=== PATIENT | male | born 1980 | race Caucasian/White ===

== ENCOUNTER → 2016-11-22 | Outpatient (CLI) | payer OTHER ==
[~2016-11-22] MED LIST: ACET-1256 PO; GADAVIST IV PRN
--- NOTE | 2016-11-22 10:05 | DIAGNOSTIC IMAGING REPORT ---
ORBITS FOR MRI CLINICAL HISTORY: 36 years-old Male presenting with R/O FOREIGN BODY PRIOR TO MRI, orbit screening prior to MRI. TECHNIQUE: Frontal and lateral radiographs of the orbits were obtained. COMPARISON: Head CT from 2012. FINDINGS: No radiodensity suggestive of retained metallic foreign body. Paranasal sinuses grossly clear. Calvarium intact. IMPRESSION: 1. No intraorbital metallic foreign body to preclude MRI. Electronically signed by: Fred Ray M.D. 11/22/2016 10:03 AM Dictated Date/Time: 11/22/2016 10:02 AM
--- NOTE | 2016-11-22 11:04 | DIAGNOSTIC IMAGING REPORT ---
BRAIN COMBO CLINICAL HISTORY: 36 years-old Male presenting with ataxia, expressive language disorder, memory loss and speech impairment since March 26, 2016. TECHNIQUE: Multisequence, multiplanar MR imaging of the brain was performed before and after the administration of intravenous contrast. IV contrast: 7 mL of Gadavist. COMPARISON: Correlation made with CT of the head from April 25, 2013. FINDINGS: Mild upward convexity of the pituitary gland. Otherwise normal midline sagittal structures. No restricted diffusion to suggest acute ischemia. Ventricular system and sulci normal in size. Apparent T1 hypointense, T2 hyperintense focus within the right cerebellar hemisphere that is not definitively apparent on coronal FLAIR images. This is suspicious for a chronic infarct. Otherwise normal brain parenchyma. No midline shift or mass effect. No hemorrhage or extra-axial fluid collection. T2 skull base flow voids preserved. No abnormal enhancement on postcontrast imaging. Normal bone marrow signal intensity within the calvarium. Mild mucosal thickening of the paranasal sinuses. IMPRESSION: 1. Possible chronic right cerebellar hemispheric infarct. No acute intracranial pathology. 2. Apparent convexity of the pituitary gland is unexpected in a male patient of this age. This examination was not tailored to pituitary evaluation. Underlying microadenoma cannot be excluded. Further evaluation could be considered if clinically warranted. Electronically signed by: Fred Ray M.D. 11/22/2016 11:03 AM Dictated Date/Time: 11/22/2016 10:55 AM
== END | disposition home or self-care (01) ==
LOC: C.MRIBC 09:20
PROVIDERS: ATTEND Psychiatry & Neurology Neurology
DX: F80.1 Expressive language disorder (principal); G31.9 Degenerative disease of nervous system, unspecified; R41.3 Other amnesia; R27.0 Ataxia, unspecified; R51 Headache

== ENCOUNTER → 2016-12-11 | Outpatient (CLI) | payer OTHER ==
--- NOTE | 2016-12-11 12:40 | DIAGNOSTIC IMAGING REPORT ---
MRA OF THE NECK WITH AND WITHOUT CONTRAST CLINICAL HISTORY: Arterial ischemic stroke, chronic. COMPARISON STUDY: None. TECHNIQUE: Unenhanced and contrast-enhanced MRA of the neck was performed. Injection of 7 mL of Gadavist IV was uneventful. NASCET criteria were utilized to estimate the degree of carotid stenosis. FINDINGS: The bilateral common carotid, internal carotid and vertebral arteries are patent. There is no stenosis within these vessels. No dissection is present. No significant irregularity is identified to suggest atherosclerotic plaque by MRI. IMPRESSION: Normal MRA of the neck. Electronically signed by: Lincoln Silverman M.D. 12/11/2016 12:38 PM Dictated Date/Time: 12/11/2016 12:34 PM
--- NOTE | 2016-12-11 12:42 | DIAGNOSTIC IMAGING REPORT ---
MR ANGIOGRAPHY OF THE [place] NO CONTRAST CLINICAL HISTORY: I69.30 Arterial ischemic stroke, [id number] MEMORY LOSS AND SPEECH IMPAIRMENT COMPARISON STUDY: None. A 3-D [id number] MR angiographic sequence of the [place] was performed. Both the source and projection images were reviewed. There is no evidence of major intracranial branch occlusion. There is no evidence of intracranial stenosis. There are no lesions suspicious for aneurysm. IMPRESSION: Unremarkable MR angiography of the [place]. Electronically signed by: Lonnie Gonzalez M.D. 12/11/2016 12:41 PM Dictated Date/Time: 12/11/2016 12:39 PM
--- NOTE | 2016-12-11 16:25 | ECHOCARDIOGRAM REPORT ---
*NOTICE TO RECEIVING LIBERTARIAN AGENCY This information is strictly Confidential and protected under [place] law. [place] law prohibits you from making any further disclosure of this information unless further disclosure is expressly permitted by the written consent of the person to whom it pertains or is authorized by law. A general authorization for the release of medical or other information is not sufficient for this purpose. Hospital accepts no responsibility if the information is made available to any other person, INCLUDING THE PATIENT. Interpretation Summary * Name: MOY ESPOSITO Study Date: 12/11/2016 12:24 PM * Patient Location: [facility] [place] HR: 67 * : 1980 (M/d/yyyy) Gender: Male Height: 57 in * Age: 36 yrs Ethnicity: [place] Weight: 155 lb * Ordering Physician: Sridhar Graham * Referring Physician: Sridhar Graham. * Performed By: Taty Elizalde RCS * * Reason For Study: CEREBRAL ISCHEMIA / EMBOLUS * BSA: 1.6 m2 * -- Conclusions -- * There is borderline concentric left ventricular hypertrophy. * Left ventricular systolic function is normal. * Injection of contrast documented an interatrial shunt. * Right ventricular systolic pressure is elevated at 50-60mmHg. Procedure Details * A complete two-dimensional transthoracic echocardiogram was performed (2D, M-mode, Doppler and color flow Doppler). Left Ventricle * The left ventricle is normal in size. * There is borderline concentric left ventricular hypertrophy. * Left ventricular systolic function is normal. * Ejection Fraction = 55-60%. * The left ventricular wall motion is normal. Right Ventricle * The right ventricle is normal in size and function. Atria * The left atrial size is normal. * Right atrial size is normal. * Chiari network (normal variant) is noted. * Injection of contrast documented an interatrial shunt. Mitral Valve * The mitral valve leaflets appear normal. There is no evidence of stenosis, fluttering, or prolapse. * Significant mitral regurgitation is absent. Tricuspid Valve * The tricuspid valve is not well visualized, but is grossly normal. * There is trace tricuspid regurgitation. * Right ventricular systolic pressure is elevated at 50-60mmHg. Aortic Valve * The aortic valve is trileaflet. * The aortic valve is normal in structure and function. * No hemodynamically significant valvular aortic stenosis. * There is no significant aortic regurgitation. Great Vessels * The aortic root is normal size. Pericardium/Pleural * There is no pericardial effusion. MMode 2D Measurements and Calculations IVSd 1.3 cm IVSs 1.9 cm LVIDd 4.4 cm LVIDs 2.8 cm LVPWd 1.2 cm LVPWs 1.3 cm IVS/LVPW 1.1 FS 36.4 % EDV(Teich) 86.8 ml ESV(Teich) 29.2 ml EF(Teich) 66.3 % EDV(cubed) 84.1 ml ESV(cubed) 21.7 ml EF(cubed) 74.2 % % IVS thick 45.6 % % LVPW thick 6.6 % LV mass(C)d 197.1 grams LV mass(C)dI 122.1 grams/m\S\2 LV mass(C)s 154.1 grams LV mass(C)sI 95.5 grams/m\S\2 SV(Teich) 57.6 ml SI(Teich) 35.7 ml/m\S\2 SV(cubed) 62.4 ml SI(cubed) 38.7 ml/m\S\2 Ao root diam 2.7 cm Ao root area 5.9 cm\S\2 ACS 1.7 cm LA dimension 3.8 cm LA/Ao 1.4 LVOT diam 2.0 cm LVOT area 3.2 cm\S\2 LVAd ap4 28.7 cm\S\2 LVLd ap4 6.9 cm EDV(MOD-sp4) 97.7 ml EDV(sp4-el) 100.8 ml LVAs ap4 17.0 cm\S\2 LVLs ap4 5.4 cm ESV(MOD-sp4) 44.5 ml ESV(sp4-el) 45.3 ml EF(MOD-sp4) 54.4 % EF(sp4-el) 55.1 % LVAd ap2 29.8 cm\S\2 LVLd ap2 7.6 cm EDV(MOD-sp2) 93.2 ml EDV(sp2-el) 99.6 ml LVAs ap2 16.6 cm\S\2 LVLs ap2 6.6 cm ESV(MOD-sp2) 34.2 ml ESV(sp2-el) 35.2 ml EF(MOD-sp2) 63.3 % EF(sp2-el) 64.7 % LVLd %diff 8.7 % EDV(MOD-bp) 99.4 ml LVLs %diff 17.9 % ESV(MOD-bp) 43.5 ml EF(MOD-bp) 56.2 % SV(MOD-sp4) 53.2 ml SI(MOD-sp4) 32.9 ml/m\S\2 SV(MOD-sp2) 59.0 ml SI(MOD-sp2) 36.6 ml/m\S\2 SV(MOD-bp) 55.8 ml SI(MOD-bp) 34.6 ml/m\S\2 SV(sp4-el) 55.5 ml SI(sp4-el) 34.4 ml/m\S\2 SV(sp2-el) 64.5 ml SI(sp2-el) 39.9 ml/m\S\2 Doppler Measurements and Calculations MV E max reji 108.4 cm/sec MV A max reji 87.9 cm/sec MV E/A 1.2 MV P1/2t max reji 105.9 cm/sec MV P1/2t 56.2 msec MVA(P1/2t) 3.9 cm\S\2 MV dec slope 551.9 cm/sec\S\2 MV dec time 0.14 sec Ao V2 max 125.0 cm/sec Ao max PG 6.2 mmHg Ao max PG (full) 2.6 mmHg STACEY(V,A) 2.5 cm\S\2 STACEY(V,D) 2.5 cm\S\2 LV V1 max PG 3.6 mmHg LV V1 max 94.9 cm/sec MR max reji 527.7 cm/sec MR max PG 111.5 mmHg PA V2 max 113.0 cm/sec PA max PG 5.1 mmHg PI max reji 151.8 cm/sec PI max PG 9.2 mmHg PI dec slope 89.3 cm/sec\S\2 PI P1/2t 497.9 msec TR max reji 343.3 cm/sec
== END | disposition home or self-care (01) ==
LOC: C.MRI 11:21
PROVIDERS: ATTEND Psychiatry & Neurology Neurology
DX: I69.30 Unspecified sequelae of cerebral infarction (principal)

== ENCOUNTER → 2017-01-04 | Outpatient (CLI) | payer OTHER ==
[~2017-01-04] MED LIST changes: -GADAVIST IV PRN
== END | disposition home or self-care (01) ==
LOC: C.CPL 12:15
PROVIDERS: ATTEND Psychiatry & Neurology Neurology
DX: I69.30 Unspecified sequelae of cerebral infarction (principal)